=== PATIENT | female | born 1940 | race Caucasian/White ===

== ENCOUNTER → 2018-03-23 18:52 | Outpatient (CLI) | payer MEDICARE, OTHER, SELFPAY ==
--- NOTE | 2018-03-23 18:52 | DT_ITS ---
This patient was seen during an EMR downtime March 16, 2018 - March 23, 2018. This patient may have a combination of paper and electronic documentation or all paper documentation. All documentation is viewable within the e-chart portion of [facility] for each patient visit.
[2018-03-23 19:17] LABS: Hematocrit 38.8 % (37-47); Hemoglobin 11.4 g/dl (12.0-15.0); Mean Corp Hgb Conc 29.4 g/gl (32-36); Mean Corpuscular Hgb 27.5 pg (27.0-32.0); Mean Corpuscular Volume 93.7 fL (81-99); Mean Platelet Vol. 10.9 fl (6.2-12.0); Platelet Count 220 K/mm3 (150-450); RBC Distribution Width CV 15.7 % (11.6-14.6); RBC Distribution Width SD 53.6 fl (35.1-43.9); Red Blood Count 4.14 M/mm3 (4.2-5.4)
[2018-03-23 19:19] LABS: Scan Indicated on CBC? Y/N NO
[2018-03-23 19:32] LABS: AST(SGOT) 15 U/L (15-37); Alanine Aminotransfer ALT/SGPT 20 U/L (13-56); Albumin, Serum 3.4 g/dL (3.2-5.0); Alkaline Phosphatase 100 U/L (45-117); Anion Gap 8 (5-15); BUN 15 mg/dL (7-18); BUN/Creat Ratio 11.2 RATIO (10-20); Calcium,Total 9.4 mg/dL (8.5-10.1); Chloride 107 mmol/L (98-107); Creatinine, Serum 1.34 mg/dL (0.55-1.02); EST Glomerular Filtration Rate 41 mL/min (>60); Est Glom Filt Rate - Afr Amer 50 mL/min (>60); Globulin 3.5 g/dL (2.2-4.2); Glucose 96 mg/dL (74-106); Potassium 4.7 mmol/L (3.5-5.1); Prealbumin 14.9 mg/dL (20.0-40.0); Protein, Total 6.9 g/dL (6.4-8.2); Sodium Level 145 mmol/L (136-145)
[2018-03-23 19:39] LABS: Hemoglobin A1c 8.3 % (4.2-6.3)
== END ==
PROVIDERS: Surgery; Family Provider Internal Medicine; PCP Internal Medicine; Visit Provider Surgery
DX: L03.116 Cellulitis of left lower limb (principal); I73.9 Peripheral vascular disease, unspecified; E11.9 Type 2 diabetes mellitus without complications
CPT/HCPCS: 80053; 83036; 84134; 85027

== ENCOUNTER 2018-04-06 12:30 | Outpatient (RCR) | payer MEDICARE, OTHER, SELFPAY ==
--- NOTE | 2018-03-23 16:59 | HP.PCM_ITS ---
(1) Leg swelling Status: Chronic Current Visit: Yes Code(s): M79.89 - Other specified soft tissue disorders (2) Leg edema Status: Chronic Current Visit: Yes Code(s): R60.0 - Localized edema (3) Lymphedema Status: Chronic Current Visit: Yes Code(s): I89.0 - Lymphedema, not elsewhere classified (4) Ulcer of left lower leg Status: Acute Current Visit: Yes Qualifiers: Non-pressure ulcer stage: limited to breakdown of skin Qualified Code(s): L97.921 - Non-pressure chronic ulcer of unspecified part of left lower leg limited to breakdown of skin Code(s): L97.929 - Non-pressure chronic ulcer of unspecified part of left lower leg with unspecified severity (5) Morbid obesity with BMI of 50.0-59.9, adult Status: Chronic Current Visit: Yes Code(s): E66.01 - Morbid (severe) obesity due to excess calories; Z68.43 - Body mass index (BMI) 50-59.9 , adult (6) Diabetes mellitus Status: Chronic Current Visit: Yes Qualifiers: Diabetes mellitus type: type 2 Code(s): E11.9 - Type 2 diabetes mellitus without complications (7) Anemia Status: Chronic Current Visit: No Code(s): D64.9 - Anemia, unspecified (8) COPD (chronic obstructive pulmonary disease) Status: Chronic Current Visit: Yes Code(s): J44.9 - Chronic obstructive pulmonary disease, unspecified (9) A-fib Status: Chronic Current Visit: No Qualifiers: Atrial fibrillation type: chronic Qualified Code(s): I48.2 - Chronic atrial fibrillation Code(s): I48.91 - Unspecified atrial fibrillation (10) Hypertension Status: Chronic Current Visit: No Code(s): I10 - Essential (primary) hypertension (11) PAD (peripheral artery disease) Status: Chronic Current Visit: Yes Code(s): I73.9 - Peripheral vascular disease, unspecified (12) Osteoarthritis Status: Chronic Current Visit: No Code(s): M19.90 - Unspecified osteoarthritis, unspecified site (13) Hyperlipidemia Status: Chronic Current Visit: No Code(s): E78.5 - Hyperlipidemia, unspecified (14) Renal insufficiency Status: Chronic Current Visit: No Code(s): N28.9 - Disorder of kidney and ureter, unspecified (15) Dependent edema Status: Chronic Current Visit: Yes Code(s): R60.9 - Edema, unspecified History of Present Illness Date of Service: 03/23/18 Chief Complaint: Severe swelling, edema, and lymphedema of both lower extremities, associated with recent ulcerations of the left lower extremity. The patient states My skin is broke out. History of Wound: This is a 77-year-old morbidly obese, diabetic white female with a long-standing history of swelling, edema, and lymphedema in her lower extremities. She has developed chronic skin changes in both lower extremities. Within the last several weeks, she has developed blisters on the left anterior tibial surface and on the left posterior calf, which have burst, and developed into open superficial ulcerations. The patient sleeps primarily in a recliner with her legs in a dependent position. She suffers from chronic obstructive pulmonary disease, which limits her activity. As result, she does not ambulate very liberally. She leads a rather sedentary lifestyle, typically sitting in an ideal position for a good part of each day. The patient has had long-term swelling in both lower extremities, though denies a history of thrombophlebitis in the past. Upon initial development of the superficial ulcerations in the left lower extremity, the patient used [id number] antibiotic ointment. She was subsequently evaluated by a physician, and was prescribed oral antibiotic. She completed the initial prescription for antibiotic, and subsequently started a second prescription, which is nearly completed. The first antibiotic is unknown. The second antibiotic is suspected to be doxycycline. Past Medical History Past Medical History: Chronic Problems Leg swelling (Chronic) Leg edema (Chronic) Lymphedema (Chronic) Morbid obesity with BMI of 50.0-59.9, adult (Chronic) Diabetes mellitus (Chronic) Anemia (Chronic) COPD (chronic obstructive pulmonary disease) (Chronic) A-fib (Chronic) Hypertension (Chronic) PAD (peripheral artery disease) (Chronic) Osteoarthritis (Chronic) Hyperlipidemia (Chronic) Renal insufficiency (Chronic) Dependent edema (Chronic) Past Medical History: The patient has a history of diabetes mellitus, anemia, asthma, chronic obstructive pulmonary disease, atrial fibrillation, hypertension , peripheral arterial occlusive disease, osteoarthritis, renal insufficiency, and hyperlipidemia. She denies a history of myocardial infarction, congestive heart failure, cerebrovascular accident, and thyroid disease. Surgical History: - - The patient has undergone a complete hysterectomy in the past. She has also undergone ventral hernia repair. She is a Ab0. - Family History Paternal - - The patient's father at the age of 65 with a history of coronary artery disease. Patient's mother at the age of 87 with a history of chronic obstructive pulmonary disease. Social History: The patient is a . She is unemployed. She does not have a history of gainful employment. She denies use of alcohol and tobacco products. Lives: With Family Tobacco Use: Non-smoker Alcohol: None Drugs: None Review of Systems Constitutional: Denies: Chills, Fever, Weight Change Eyes: Denies: Pain, Vision Change HEENT: Denies: Difficulty Hearing, Difficulty Swallowing, Sinus Congestion Cardiovascular: Denies: Chest Pain, Palpitations Respiratory: Denies: Cough, Shortness of Breath Gastrointestinal: Denies: Diarrhea, Nausea, Vomiting Genitourinary: Denies: Dysuria, Hematuria Endocrine: Denies: Heat/ Cold Intolerance, Polydipsia, Polyuria Hematologic/ Lymphatic: Denies: Easy Bruising, Easy Bleeding - Physical Exam General: Alert, Oriented x3, Cooperative, No apparent distress, Well developed, Well nourished HEENT: Atraumatic, PERRLA, EOMI, Normocephalic Oral: Moist Mucosa Neck: Supple, No JVD, Negative Carotid Bruits, Negative Hepatojugular Reflux, No Nodes, No Nuchal Rigidity, Trachea Midline Lungs: Clear to auscultation, Normal air movement, No rhonchi, No wheeze, No rales Cardiovascular: Regular Rhythm, Normal S1, Normal S2, No murmurs Abdomen: Soft, Non Tender, Non-Distended, Obese Extremities: No clubbing, No cyanosis, No Calf Tenderness, - - Severe swelling, edema, and lymphedema are noted in the patient's lower extremities. Well- defined areas of erythema are noted on the anterior tibial surfaces in the gaiter areas bilaterally. This does not look cellulitic in nature. There are superficial ulcerations on the left anterior tibial surface and on the left posterior calf. The base of these ulcerations are generally pink, and generally healthy. There is no sign of infection or cellulitis. Musculoskeletal: No Muscle Wasting Neurological: Cranial nerves II-XII grossly intact, Neuro grossly intact Psych/Mental Status: Normal Affect, Appropriate, Alert and oriented to time, place, person, mood and affect Debridement Note No debridement was completed today Assessment/Plan Active Problems Leg swelling (Chronic) Leg edema (Chronic) Lymphedema (Chronic) Ulcer of left lower leg (Acute) Morbid obesity with BMI of 50.0-59.9, adult (Chronic) Diabetes mellitus (Chronic) COPD (chronic obstructive pulmonary disease) (Chronic) PAD (peripheral artery disease) (Chronic) Dependent edema (Chronic) Assessment: This is a 77-year-old female with multiple medical problems, including morbid obesity, diabetes mellitus, atrial fibrillation, chronic obstructive pulmonary disease, hypertension, renal insufficiency, etc. She presents with severe swelling and edema in her lower extremities. It appears to be related to chronic dependency, inactivity, morbid obesity, etc. In other words, the patient's daily habits appear to have contributed significantly to her lower extremity swelling. She has multiple pre-existing medical problems which have been documented elsewhere. Plan: The patient has been advised to elevate her lower extremities as much as possible. Elevation is to be to heart level, or higher. She is to refrain from prolonged idle sitting. Activity has been encouraged. Weight loss has been strongly encouraged. Compression is to be implemented initially by means of Tubigrip's. A higher degree of compression will be implemented, if noninvasive arterial assessment suggests an absence of significant arterial occlusive disease. Tubigrip's are to be donned and worn daily. We are to use collagen hydrogel topically to each of the superficial ulcerations. The patient has been encouraged to finish her current prescription for doxycycline. A battery of diagnostic studies will be obtained. Laboratory studies will be ordered, including a CBC, comprehensive metabolic profile, serum prealbumin, and hemoglobin A1c. A venous duplex examination will be obtained, as well as ankle-brachial indices. Patient has been advised to optimize her glycemic control. Patient will return in 1 week for reassessment. Influenza vaccine was not administered today. The patient is not a smoker. Patient weighs 307 pounds. Patient stands 5 feet 3 inches tall. Her BMI is 54.4, which places her in an obese class III category. Weight loss has been recommended, and collaboration with her primary care physician in terms of weight loss options has been recommended.
--- NOTE | 2018-03-30 08:11 | VDLE_ITS ---
Reason For Study: Non-healing wound RIGHT LEFT CFV is compressible, spontaneous, phasic, CFV is compressible, spontaneous, phasic, competent and demonstrates normal competent, and demonstrates normal augmentation. augmentation. FV is compressible, spontaneous, phasic, FV is compressible, spontaneous, phasic, competent and demonstrates normal competent and demonstrates normal augmentation. augmentation. POP V is compressible, spontaneous, phasic, POP V is compressible, spontaneous, phasic, competent and demonstrates normal competent and demonstrates normal augmentation. augmentation. T/P Trunk is compressible. T/P Trunk is compressible. PTV is compressible. PTV is compressible. SFJ is competent SFJ is competent GSV is competent int thigh GSV is competent GSV is INCOMPETENT in calf with reflux GSV branch S3 is INCOMPETENT with reflux greater than .5 sec and diameter of .48 greater than .5 sec and diameter of .31 x .48 cm x .29 cm SSV is competent. SSV is competent. Procedure Exam performed in department. Technically difficult due to body habitus. A preliminary report was called and/or faxed to [facility]. Interpretation Summary Deep veins of the lower extremities are bilaterally patent and compressible segmentally. There is no evidence of deep vein thrombosis on either side. Valvular competence appears intact within the proximal deep venous systems bilaterally. The greater saphenous veins appear bilaterally patent and compressible segmentally. Sapheno-femoral junctions are bilaterally competent . The right greater saphenous vein appears competent above the knee. The right greater saphenous vein appears incompetent below the knee. The left greater saphenous vein appears segmentally competent. Small saphenous veins are patent and competent bilaterally. The left accessory saphenous vein (S3) is incompetent. Ordering Physician: Mic Mendez MD Referring Physician: Stefanie Gold Performed By: Jennifer Thompson RVT
--- NOTE | 2018-03-30 18:32 | LEAS ---
Arterial Study - Arterial Study Arterial Study: This is a 77-year-old female with a history of lower extremity swelling, edema, diabetes mellitus, chronic obstructive pulmonary disease, atrial fibrillation, hyperlipidemia, renal insufficiency, hypertension, and peripheral arterial occlusive disease. With a history of, and suspecting, peripheral arterial occlusive disease, the patient was brought to the noninvasive vascular laboratory at this time for the purpose of bilateral noninvasive lower extremity arterial assessment. Doppler signal assessment was used to evaluate the pulses at ankle level bilaterally. The posterior tibial and dorsalis pedis pulses were triphasic bilaterally. Segmental limb pressures were obtained bilaterally. The right ankle pressure, as determined by posterior tibial pulse, was measured at 162 mmHg. The right ankle pressure, as determined by dorsalis pedis pulse, was measured at 155 mmHg. The right digital pressure was measured at 143 mmHg. The left ankle pressure, as determined by posterior tibial pulse, was measured at 168 mmHg. The left ankle pressure, as determined by dorsalis pedis pulse, was measured at 159 mmHg. The left digital pressure was measured at 138 mmHg. Resting ankle-brachial indices were calculated bilaterally. The resting right ankle-brachial index was calculated to be 1.17. The resting left ankle-brachial index was calculated to be 1.21. Digital-brachial indices were calculated bilaterally. The right digital-brachial index was calculated to be 1.03. The left digital-brachial index was calculated to be 0.99. Impression: Based upon the findings of this resting noninvasive lower extremity arterial study, there is no evidence of significant atherosclerotic peripheral arterial occlusive disease in the lower extremities bilaterally. Triphasic waveforms are noted at ankle level bilaterally. Resting ankle-brachial indices are bilaterally normal. Digital-brachial indices are also normal bilaterally. In summary, this represents a normal resting noninvasive lower extremity arterial study bilaterally.
--- NOTE | 2018-03-30 18:38 | LEAS_ITS ---
Arterial Study - Arterial Study Arterial Study: This is a 77-year-old female with a history of lower extremity swelling, edema, diabetes mellitus, chronic obstructive pulmonary disease, atrial fibrillation, hyperlipidemia, renal insufficiency, hypertension, and peripheral arterial occlusive disease. With a history of, and suspecting, peripheral arterial occlusive disease, the patient was brought to the noninvasive vascular laboratory at this time for the purpose of bilateral noninvasive lower extremity arterial assessment. Doppler signal assessment was used to evaluate the pulses at ankle level bilaterally. The posterior tibial and dorsalis pedis pulses were triphasic bilaterally. Segmental limb pressures were obtained bilaterally. The right ankle pressure, as determined by posterior tibial pulse, was measured at 162 mmHg. The right ankle pressure, as determined by dorsalis pedis pulse, was measured at 155 mmHg. The right digital pressure was measured at 143 mmHg. The left ankle pressure, as determined by posterior tibial pulse, was measured at 168 mmHg. The left ankle pressure, as determined by dorsalis pedis pulse, was measured at 159 mmHg. The left digital pressure was measured at 138 mmHg. Resting ankle-brachial indices were calculated bilaterally. The resting right ankle-brachial index was calculated to be 1.17. The resting left ankle- brachial index was calculated to be 1.21. Digital-brachial indices were calculated bilaterally. The right digital- brachial index was calculated to be 1.03. The left digital-brachial index was calculated to be 0.99. Impression: Based upon the findings of this resting noninvasive lower extremity arterial study, there is no evidence of significant atherosclerotic peripheral arterial occlusive disease in the lower extremities bilaterally. Triphasic waveforms are noted at ankle level bilaterally. Resting ankle-brachial indices are bilaterally normal. Digital-brachial indices are also normal bilaterally. In summary, this represents a normal resting noninvasive lower extremity arterial study bilaterally.
[2018-04-06 12:25] VITALS: BP 163/73; PULSE 98; RESP 22; TEMP 36.6
--- NOTE | 2018-04-06 13:13 | HP.PCM_ITS ---
(1) Leg swelling Status: Chronic Current Visit: Yes Code(s): M79.89 - Other specified soft tissue disorders (2) Leg edema Status: Chronic Current Visit: Yes Code(s): R60.0 - Localized edema (3) Lymphedema Status: Chronic Current Visit: Yes Code(s): I89.0 - Lymphedema, not elsewhere classified (4) Ulcer of left lower leg Status: Acute Current Visit: Yes Qualifiers: Non-pressure ulcer stage: with fat layer exposed Qualified Code(s): L97.922 - Non-pressure chronic ulcer of unspecified part of left lower leg with fat layer exposed Code(s): L97.929 - Non-pressure chronic ulcer of unspecified part of left lower leg with unspecified severity (5) Morbid obesity with BMI of 50.0-59.9, adult Status: Chronic Current Visit: Yes Code(s): E66.01 - Morbid (severe) obesity due to excess calories; Z68.43 - Body mass index (BMI) 50-59.9 , adult (6) Diabetes mellitus Status: Chronic Current Visit: Yes Qualifiers: Diabetes mellitus type: type 2 Code(s): E11.9 - Type 2 diabetes mellitus without complications (7) Anemia Status: Chronic Current Visit: No Code(s): D64.9 - Anemia, unspecified (8) COPD (chronic obstructive pulmonary disease) Status: Chronic Current Visit: Yes Code(s): J44.9 - Chronic obstructive pulmonary disease, unspecified (9) A-fib Status: Chronic Current Visit: No Qualifiers: Atrial fibrillation type: chronic Qualified Code(s): I48.2 - Chronic atrial fibrillation Code(s): I48.91 - Unspecified atrial fibrillation (10) Hypertension Status: Chronic Current Visit: No Code(s): I10 - Essential (primary) hypertension (11) PAD (peripheral artery disease) Status: Chronic Current Visit: Yes Code(s): I73.9 - Peripheral vascular disease, unspecified (12) Osteoarthritis Status: Chronic Current Visit: No Code(s): M19.90 - Unspecified osteoarthritis, unspecified site (13) Hyperlipidemia Status: Chronic Current Visit: No Code(s): E78.5 - Hyperlipidemia, unspecified (14) Renal insufficiency Status: Chronic Current Visit: No Code(s): N28.9 - Disorder of kidney and ureter, unspecified (15) Dependent edema Status: Chronic Current Visit: Yes Code(s): R60.9 - Edema, unspecified History of Present Illness Date of Service: 04/06/18 Chief Complaint: Severe swelling, edema, and lymphedema of both lower extremities, associated with recent ulcerations of the left lower extremity. The patient states My skin is broke out. History of Wound: This is a 77-year-old morbidly obese, diabetic white female with a long-standing history of swelling, edema, and lymphedema in her lower extremities. She has developed chronic skin changes in both lower extremities. Within the last several weeks, she has developed blisters on the left anterior tibial surface and on the left posterior calf, which have burst, and developed into open superficial ulcerations. The patient sleeps primarily in a recliner with her legs in a dependent position. She suffers from chronic obstructive pulmonary disease, which limits her activity. As result, she does not ambulate very liberally. She leads a rather sedentary lifestyle, typically sitting in an ideal position for a good part of each day. The patient has had long-term swelling in both lower extremities, though denies a history of thrombophlebitis in the past. Upon initial development of the superficial ulcerations in the left lower extremity, the patient used [id number] antibiotic ointment. She was subsequently evaluated by a physician, and was prescribed oral antibiotic. She completed the initial prescription for antibiotic, and subsequently started a second prescription, which is now completed. The first antibiotic is unknown. The second antibiotic is suspected to have been doxycycline. Past Medical History Past Medical History: Chronic Problems Leg swelling (Chronic) Leg edema (Chronic) Lymphedema (Chronic) Morbid obesity with BMI of 50.0-59.9, adult (Chronic) Diabetes mellitus (Chronic) Anemia (Chronic) COPD (chronic obstructive pulmonary disease) (Chronic) A-fib (Chronic) Hypertension (Chronic) PAD (peripheral artery disease) (Chronic) Osteoarthritis (Chronic) Hyperlipidemia (Chronic) Renal insufficiency (Chronic) Dependent edema (Chronic) Surgical History: - - The patient has undergone a complete hysterectomy in the past. She has also undergone ventral hernia repair. She is a Ab0. - Family History Paternal - - The patient's father at the age of 65 with a history of coronary artery disease. Patient's mother at the age of 87 with a history of chronic obstructive pulmonary disease. Lives: With Family Tobacco Use: Non-smoker Alcohol: None Drugs: None Review of Systems Constitutional: Denies: Chills, Fever, Weight Change Eyes: Denies: Pain, Vision Change HEENT: Denies: Difficulty Hearing, Difficulty Swallowing, Sinus Congestion Cardiovascular: Denies: Chest Pain, Palpitations Respiratory: Denies: Cough, Shortness of Breath Gastrointestinal: Denies: Diarrhea, Nausea, Vomiting Genitourinary: Denies: Dysuria, Hematuria Endocrine: Denies: Heat/ Cold Intolerance, Polydipsia, Polyuria Hematologic/ Lymphatic: Denies: Easy Bruising, Easy Bleeding - Physical Exam Vital Signs Temp Pulse Resp BP 97.8 F 98 22 H 163/73 H 04/06/18 12:25 04/06/18 12:25 04/06/18 12:25 04/06/18 12:25 General: Alert, Oriented x3, Cooperative, No apparent distress, Well developed, Well nourished HEENT: Atraumatic, PERRLA, EOMI, Normocephalic Oral: Moist Mucosa Neck: No JVD Lungs: Normal air movement Abdomen: Non-Distended, Obese Extremities: No clubbing, No cyanosis, No Calf Tenderness, - - Mild swelling and edema persists in the lower extremities bilaterally. One superficial ulceration is noted on the right anterior tibial surface. Several superficial ulcerations are noted on the left anterior tibial surface. Those in the left lower extremity demonstrate a moderate amount of bioburden and nonviable tissue. There is no sign of infection or cellulitis. Skin: No rashes Wound Measurements and Assessment WC - Nurse 1 - General Ulcer Measurement Start: 03/26/18 14:23 Freq: Status: Active Protocol: Activity Type Activity Date Activity User E-Sign Co-Sign Detail Recorded Client Recorded Date Recorded By Document 04/06/18 12:25 DL [id number] 04/06/18 12:39 DL 04/06/18 12:25 Wound Center Nurse 1 [Ulcer Assessment] #2 L Lower Calf -Current Size (cm) - Length 5 -Current Size (cm) - Width 2.3 -Current Size (cm) - Depth 0.1 -Total Square Cm 11.5 -Photo Taken No -Exudate Amt Small (1-33%) -Exudate Type Serosanguineous -Wound Margin Indistinct, Non -Visible -Granulation Amt Small (1-33%) -Granulation Quality [place] -Necrosis Amt Large (67-100%) -Necrotic Tissue Type Adherent Slough -Structure Exposed N/A -Texture (Mitzi-wound Skin Appearance) Scarring -Moisture (Mitzi-wound Skin Appearance No Abnormality ) -Color (Mitzi-wound Skin Appearance) Hemosiderin Staining -Temperature (Mitzi-wound Skin No Abnormality Appearance) (Pt Warm) -Ulcer Cleansing Wound Cleanser -Foul Odor after Cleansing No -Anesthetic Used 4% Lidocaine Solution #1 L [place] -Current Size (cm) - Length 6 -Current Size (cm) - Width 2.6 -Current Size (cm) - Depth 0.1 -Total Square Cm 15.6 -Photo Taken No -Exudate Amt Small (1-33%) -Exudate Type Serosanguineous -Wound Margin Indistinct, Non -Visible -Granulation Amt Small (1-33%) -Granulation Quality [place] -Necrosis Amt Large (67-100%) -Necrotic Tissue Type Adherent Slough -Structure Exposed N/A -Texture (Mitzi-wound Skin Appearance) No Abnormality -Moisture (Mitzi-wound Skin Appearance Weeping ) -Color (Mitzi-wound Skin Appearance) Hemosiderin Staining Rubor -Temperature (Mitzi-wound Skin No Abnormality Appearance) (Pt Warm) -Ulcer Cleansing Wound Cleanser -Foul Odor after Cleansing No -Anesthetic Used 4% Lidocaine Solution [Edema Assessment] -Right Calf (cm) 48.5 -Right Ankle (cm) 27 -Left Calf (cm) 48.9 -Left Ankle (cm) 26.6 WC - Nurse 2 - General Ulcer CM Notes Start: 03/26/18 14:23 Freq: Status: Active Protocol: Activity Type Activity Date Activity User E-Sign Co-Sign Detail Recorded Client Recorded Date Recorded By Document 04/06/18 12:53 [email or web address] [id number] 04/06/18 12:56 SAUD 04/06/18 12:53 Wound Center Nurse 2 [Procedure/Treatment] #2 L Lower Calf -Time 12:53 -Correct Patient Yes -Correct Side, Site, Position Yes -Correct Procedure Yes -Procedure Performed No -Wound/Ulcer Outcome Not Healed -Ulcer Cleansing Rinsed/ Irrigated with Saline -Foul Odor after Cleansing No -Bioengineered Tissue No -Topical Lidocaine (%) 4 -Lidocaine (ml) 5 -Bleeding Controlled with NA -Treatment Response Procedure Tolerated Well #1 L [place] -Time 12:54 -Correct Patient Yes -Correct Side, Site, Position Yes -Correct Procedure Yes -Procedure Performed Yes -Type of Procedure Debridement -Clinical Debridement Subcutaneous -Post Debridement Size (cm) - Length 6.4 -Post Debridement Size (cm) - Width 2.5 -Post Debridement Size (cm) - Depth 0.2 -Total Square Cm 16.00 -Wound/Ulcer Outcome Not Healed -Ulcer Cleansing Rinsed/ Irrigated with Saline -Foul Odor after Cleansing No -Bioengineered Tissue No -Topical Lidocaine (%) 4 -Lidocaine (ml) 5 -Bleeding Controlled with NA -Treatment Response Procedure Tolerated Well [See Physician Procedure note for Specifics] Pain Scale: 0-10 Numeric [Pain] -Is Patient Pain Free? Yes Musculoskeletal: No Muscle Wasting Neurological: Cranial nerves II-XII grossly intact, Neuro grossly intact Psych/Mental Status: Normal Affect, Appropriate, Alert and oriented to time, place, person, mood and affect Debridement Note Post-Debridement Measurements/Treatment WC - Nurse 2 - General Ulcer CM Notes Start: 03/26/18 14:23 Freq: Status: Active Protocol: Activity Type Activity Date Activity User E-Sign Co-Sign Detail Recorded Client Recorded Date Recorded By Document 04/06/18 12:53 [email or web address] [id number] 04/06/18 12:56 SAUD 04/06/18 12:53 Wound Center Nurse 2 #2 L Lower Calf -Time 12:53 -Correct Patient Yes -Correct Side, Site, Position Yes -Correct Procedure Yes -Procedure Performed No -Wound/Ulcer Outcome Not Healed -Ulcer Cleansing Rinsed/ Irrigated with Saline -Foul Odor after Cleansing No -Bioengineered Tissue No -Topical Lidocaine (%) 4 -Lidocaine (ml) 5 -Bleeding Controlled with NA -Treatment Response Procedure Tolerated Well #1 L [place] -Time 12:54 -Correct Patient Yes -Correct Side, Site, Position Yes -Correct Procedure Yes -Procedure Performed Yes -Type of Procedure Debridement -Clinical Debridement Subcutaneous -Post Debridement Size (cm) - Length 6.4 -Post Debridement Size (cm) - Width 2.5 -Post Debridement Size (cm) - Depth 0.2 -Total Square Cm 16.00 -Wound/Ulcer Outcome Not Healed -Ulcer Cleansing Rinsed/ Irrigated with Saline -Foul Odor after Cleansing No -Bioengineered Tissue No -Topical Lidocaine (%) 4 -Lidocaine (ml) 5 -Bleeding Controlled with NA -Treatment Response Procedure Tolerated Well Pain Scale: 0-10 Numeric Is Patient Pain Free? Yes Laterality: Left - Anterior tibial surface Type of Debridement: Excisional debridement Anesthesia Used: 4% Lidocaine Solution Depth: Down to and including healthy tissue, in the subcutaneous layer Percentage of wound debrided: 100 Instrument Used: 5mm curette Severity: Fat Layer Exposed Amount of bleeding with debridement: Mild Bleeding Controlled with: Compression and gauze Patient tolerated procedure well Assessment/Plan Active Problems Leg swelling (Chronic) Leg edema (Chronic) Lymphedema (Chronic) Ulcer of left lower leg (Acute) Morbid obesity with BMI of 50.0-59.9, adult (Chronic) Diabetes mellitus (Chronic) COPD (chronic obstructive pulmonary disease) (Chronic) PAD (peripheral artery disease) (Chronic) Dependent edema (Chronic) Assessment: This is a 77-year-old female with multiple medical problems, including morbid obesity, diabetes mellitus, atrial fibrillation, chronic obstructive pulmonary disease, hypertension, renal insufficiency, etc. She presented with severe swelling and edema in her lower extremities. It appears to be related to chronic dependency, inactivity, morbid obesity, etc. In other words, the patient's daily habits appear to have contributed significantly to her lower extremity swelling. She has multiple pre-existing medical problems which have been documented elsewhere. A battery of diagnostic tests have been completed. The patient's noninvasive lower extremity arterial study appears normal, with triphasic waveforms at ankle level bilaterally, and normal ankle- brachial indices and digital-brachial indices. 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 Patient's laboratory studies have been reviewed, with results as follows: Sodium 145, potassium 4.7, chloride 107, BUN 15, creatinine 1.34, glucose 96, hemoglobin A1c 8.3, calcium 9.4, total bilirubin 0.60, AST 15, ALT 20, alkaline phosphatase 100, total protein 6.9, albumin 3.4, serum prealbumin 14.9, white blood count 7.0, hemoglobin 11.4, hematocrit 38.8, platelets 220,000. Plan: The patient has been advised to elevate her lower extremities as much as possible. Elevation is to be to heart level, or higher. She is to refrain from prolonged idle sitting. Activity has been encouraged. Weight loss has been strongly encouraged. Compression is to be implemented by means of [place] boots, which will be applied bilaterally and twice weekly. Patient has been advised to optimize her glycemic control and to assure adequate nutrition. Patient will return in 1 week for reassessment. Influenza vaccine was not administered today. The patient is not a smoker. Patient weighs 307 pounds. Patient stands 5 feet 3 inches tall. Her BMI is 54.4, which places her in an obese class III category. Weight loss has been recommended, and collaboration with her primary care physician in terms of weight loss options has been recommended.
[2018-04-09 14:37] VITALS: BP 149/84; PULSE 99; RESP 16; TEMP 36.9
== END 2018-04-11 23:59 ==
LOC: WC 12:30
PROVIDERS: Family Provider Internal Medicine; PCP Internal Medicine; Visit Provider Surgery
DX: E11.622 Type 2 diabetes mellitus with other skin ulcer (principal); R60.0 Localized edema; I89.0 Lymphedema, not elsewhere classified; M79.89 Other specified soft tissue disorders; E66.01 Morbid (severe) obesity due to excess calories; Z68.43 Body mass index [BMI] 50.0-59.9, adult; Z71.3 Dietary counseling and surveillance; I48.2 Chronic atrial fibrillation; I10 Essential (primary) hypertension; M19.90 Unspecified osteoarthritis, unspecified site; E78.5 Hyperlipidemia, unspecified; J44.9 Chronic obstructive pulmonary disease, unspecified; N28.9 Disorder of kidney and ureter, unspecified; I83.028 Varicose veins of left lower extremity with ulcer other part of lower leg; L97.922 Non-pressure chronic ulcer of unspecified part of left lower leg with fat layer exposed
CPT/HCPCS: 11042; 29580; 93922; 93970; 99213; G0463

== ENCOUNTER 2018-05-12 11:30 | Outpatient (RCR) | payer MEDICARE, OTHER, SELFPAY ==
[2018-04-12 01:07] VITALS: BP 149/84; PULSE 99; RESP 16; TEMP 36.9
[2018-04-14 10:18] VITALS: BP 141/65; PULSE 106; RESP 18; TEMP 36.6
--- NOTE | 2018-04-14 12:24 | HP.PCM_ITS ---
(1) Leg swelling Status: Chronic Current Visit: Yes Code(s): M79.89 - Other specified soft tissue disorders (2) Leg edema Status: Chronic Current Visit: Yes Code(s): R60.0 - Localized edema (3) Lymphedema Status: Chronic Current Visit: Yes Code(s): I89.0 - Lymphedema, not elsewhere classified (4) Ulcer of left lower leg Status: Chronic Current Visit: Yes Qualifiers: Non-pressure ulcer stage: with fat layer exposed Code(s): L97.929 - Non-pressure chronic ulcer of unspecified part of left lower leg with unspecified severity (5) Morbid obesity with BMI of 50.0-59.9, adult Status: Chronic Current Visit: Yes Code(s): E66.01 - Morbid (severe) obesity due to excess calories; Z68.43 - Body mass index (BMI) 50-59.9 , adult (6) Diabetes mellitus Status: Chronic Current Visit: Yes Qualifiers: Diabetes mellitus type: type 2 Code(s): E11.9 - Type 2 diabetes mellitus without complications (7) Anemia Status: Chronic Current Visit: No Code(s): D64.9 - Anemia, unspecified (8) COPD (chronic obstructive pulmonary disease) Status: Chronic Current Visit: No Code(s): J44.9 - Chronic obstructive pulmonary disease, unspecified (9) A-fib Status: Chronic Current Visit: No Qualifiers: Code(s): I48.91 - Unspecified atrial fibrillation (10) Hypertension Status: Chronic Current Visit: No Code(s): I10 - Essential (primary) hypertension (11) PAD (peripheral artery disease) Status: Chronic Current Visit: No Code(s): I73.9 - Peripheral vascular disease, unspecified (12) Osteoarthritis Status: Chronic Current Visit: No Code(s): M19.90 - Unspecified osteoarthritis, unspecified site (13) Hyperlipidemia Status: Chronic Current Visit: No Code(s): E78.5 - Hyperlipidemia, unspecified (14) Renal insufficiency Status: Chronic Current Visit: No Code(s): N28.9 - Disorder of kidney and ureter, unspecified (15) Dependent edema Status: Chronic Current Visit: Yes Code(s): R60.9 - Edema, unspecified History of Present Illness Date of Service: 04/14/18 Chief Complaint: Severe swelling, edema, and lymphedema of both lower extremities, associated with recent ulcerations of the left lower extremity. The patient states My skin is broke out. History of Wound: This is a 77-year-old morbidly obese, diabetic white female with a long-standing history of swelling, edema, and lymphedema in her lower extremities. She has developed chronic skin changes in both lower extremities. Within the last several weeks prior to presentation, she developed blisters on the left anterior tibial surface and on the left posterior calf, which have burst, and developed into open superficial ulcerations. The patient sleeps primarily in a recliner with her legs in a dependent position. She suffers from chronic obstructive pulmonary disease, which limits her activity. As a result, she does not ambulate very liberally. She leads a rather sedentary lifestyle, typically sitting in an ideal position for a good part of each day. The patient has had long-term swelling in both lower extremities, though denies a history of thrombophlebitis in the past. Upon initial development of the superficial ulcerations in the left lower extremity, the patient used over-the- counter antibiotic ointment. She was subsequently evaluated by a physician, and was prescribed oral antibiotic. She completed the initial prescription for antibiotic, and subsequently started a second prescription, which is now completed. The first antibiotic is unknown. The second antibiotic is suspected to have been doxycycline. Past Medical History Past Medical History: Chronic Problems Leg swelling (Chronic) Leg edema (Chronic) Lymphedema (Chronic) Ulcer of left lower leg (Chronic) Morbid obesity with BMI of 50.0-59.9, adult (Chronic) Diabetes mellitus (Chronic) Anemia (Chronic) COPD (chronic obstructive pulmonary disease) (Chronic) A-fib (Chronic) Hypertension (Chronic) PAD (peripheral artery disease) (Chronic) Osteoarthritis (Chronic) Hyperlipidemia (Chronic) Renal insufficiency (Chronic) Dependent edema (Chronic) Surgical History: - - The patient has undergone a complete hysterectomy in the past. She has also undergone ventral hernia repair. She is a Ab0. - Family History Paternal - - The patient's father at the age of 65 with a history of coronary artery disease. Patient's mother at the age of 87 with a history of chronic obstructive pulmonary disease. Tobacco Use: Non-smoker Review of Systems Constitutional: Denies: Chills, Fever, Weight Change Eyes: Denies: Pain, Vision Change HEENT: Denies: Difficulty Hearing, Difficulty Swallowing, Sinus Congestion Cardiovascular: Denies: Chest Pain, Palpitations Respiratory: Denies: Cough, Shortness of Breath Gastrointestinal: Denies: Diarrhea, Nausea, Vomiting Genitourinary: Denies: Dysuria, Hematuria Endocrine: Denies: Heat/ Cold Intolerance, Polydipsia, Polyuria Hematologic/ Lymphatic: Denies: Easy Bruising, Easy Bleeding - Physical Exam Vital Signs Temp Pulse Resp BP 98 F 106 H 18 141/65 H 04/14/18 10:18 04/14/18 10:18 04/14/18 10:18 04/14/18 10:18 General: Alert, Oriented x3, Cooperative, No apparent distress, Well developed, Well nourished, - - The patient is obese HEENT: Atraumatic, PERRLA, EOMI, Normocephalic Oral: Moist Mucosa Neck: No JVD Lungs: Normal air movement Abdomen: Non-Distended Extremities: No clubbing, No cyanosis, No Calf Tenderness, Edema, - - The swelling and edema in the lower extremities is markedly improved. Circumference measurements are documented elsewhere. Mild erythema persists bilaterally, though not appearing to be cellulitic in nature. The 2 ulcerations on the left lower extremity, on the anterior tibial surface and on the left distal posterior calf, are much smaller in size and more superficial. There has been marked improvement. The base of each ulceration is generally pink, with a mild amount of bioburden. Ulcer dimensions are documented elsewhere. Wound Measurements and Assessment WC - Nurse 1 - General Ulcer Measurement Start: 04/14/18 10:18 Freq: Status: Active Protocol: Activity Type Activity Date Activity User E-Sign Co-Sign Detail Recorded Client Recorded Date Recorded By Document 04/14/18 10:18 [id number] 04/14/18 10:26 04/14/18 10:18 Wound Center Nurse 1 [Ulcer Assessment] #2 L Lower Calf -Combined with other wound No -Current Size (cm) - Length 1.0 -Current Size (cm) - Width 0.6 -Current Size (cm) - Depth 0.1 -Total Square Cm 0.60 -Photo Taken No -Tunneling No -Undermining/Tunneling No -Circular Undermining No -Exudate Amt Small (1-33%) -Exudate Type Serosanguineous -Wound Margin Distinct, Outline Attached -Granulation Amt Large (67-100%) -Granulation Quality [place] -Slough/Fibrin No -Necrosis Amt None Present (0 %) -Structure Exposed None/Limited to Skin Breakdown -Texture (Mitzi-wound Skin Appearance) Scarring -Moisture (Mitzi-wound Skin Appearance Dry/Scaly ) -Color (Mitzi-wound Skin Appearance) Hemosiderin Staining -Temperature (Mitzi-wound Skin No Abnormality Appearance) (Pt Warm) -Tenderness on Palpation (Mitzi-wound Yes Skin Appearance) -Ulcer Cleansing Wound Cleanser -Anesthetic Used 4% Lidocaine Solution #1 L [place] -Combined with other wound No -Current Size (cm) - Length 1.0 -Current Size (cm) - Width 0.9 -Current Size (cm) - Depth 0.1 -Total Square Cm 0.90 -Photo Taken No -Epithelialization Small 1-33% -Tunneling No -Undermining/Tunneling No -Circular Undermining No -Exudate Amt Small (1-33%) -Exudate Type Serosanguineous -Wound Margin Distinct, Outline Attached -Granulation Amt Medium (34-66%) -Granulation Quality [place] -Slough/Fibrin Yes -Necrosis Amt Medium (34-66%) -Necrotic Tissue Type Adherent Slough -Structure Exposed None/Limited to Skin Breakdown -Texture (Mitzi-wound Skin Appearance) Scarring -Moisture (Mitzi-wound Skin Appearance Dry/Scaly ) -Color (Mitzi-wound Skin Appearance) Hemosiderin Staining -Temperature (Mitzi-wound Skin No Abnormality Appearance) (Pt Warm) -Tenderness on Palpation (Mitzi-wound Yes Skin Appearance) -Ulcer Cleansing Wound Cleanser -Foul Odor after Cleansing No -Anesthetic Used 4% Lidocaine Solution [Edema Assessment] -Lower Limb Edema Present Yes -Right Calf (cm) 46 -Right Ankle (cm) 27 -Left Calf (cm) 45.5 -Left Ankle (cm) 26.5 Neurological: Cranial nerves II-XII grossly intact, Neuro grossly intact Psych/Mental Status: Normal Affect, Appropriate, Alert and oriented to time, place, person, mood and affect Debridement Note Laterality: Left - Anterior tibial surface Type of Debridement: Excisional debridement Anesthesia Used: 4% Lidocaine Solution Depth: Down to and including healthy tissue, in the subcutaneous layer Percentage of wound debrided: 100 Instrument Used: 5mm curette Severity: Fat Layer Exposed Amount of bleeding with debridement: Mild Bleeding Controlled with: Compression and gauze Patient tolerated procedure well - Additional Wound Laterality: Left - Posterior calf Type of Debridement: Excisional debridement Anesthesia Used: 4% Lidocaine Solution Depth: Down to and including healthy tissue, in the subcutaneous layer Percentage of wound debrided: 100 Instrument Used: 5mm curette Severity: Fat Layer Exposed Amount of bleeding with debridement: Mild Bleeding Controlled with: Compression and gauze Patient tolerated procedure: Patient tolerated procedure well Assessment/Plan Active Problems Leg swelling (Chronic) Leg edema (Chronic) Lymphedema (Chronic) Ulcer of left lower leg (Chronic) Morbid obesity with BMI of 50.0-59.9, adult (Chronic) Diabetes mellitus (Chronic) Dependent edema (Chronic) Assessment: This is a 77-year-old female with multiple medical problems, including morbid obesity, diabetes mellitus, atrial fibrillation, chronic obstructive pulmonary disease, hypertension, renal insufficiency, etc. She presented with severe swelling and edema in her lower extremities. It appears to be related to chronic dependency, inactivity, morbid obesity, etc. In other words, the patient's daily habits appear to have contributed significantly to her lower extremity swelling. She has multiple pre-existing medical problems which have been documented elsewhere. A battery of diagnostic tests have been completed. The patient's noninvasive lower extremity arterial study appears normal, with triphasic waveforms at ankle level bilaterally, and normal ankle- brachial indices and digital-brachial indices. 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 Patient's laboratory studies have been reviewed, with results as follows: Sodium 145, potassium 4.7, chloride 107, BUN 15, creatinine 1.34, glucose 96, hemoglobin A1c 8.3, calcium 9.4, total bilirubin 0.60, AST 15, ALT 20, alkaline phosphatase 100, total protein 6.9, albumin 3.4, serum prealbumin 14.9, white blood count 7.0, hemoglobin 11.4, hematocrit 38.8, platelets 220,000. Plan: The patient has been advised to elevate her lower extremities as much as possible. Elevation is to be to heart level, or higher. She is to refrain from prolonged idle sitting. Activity has been encouraged. Weight loss has been strongly encouraged. Compression is to be continued by means of [place] boots , which will be applied bilaterally and twice weekly. Patient has been advised to optimize her glycemic control and to assure adequate nutrition. Patient will return in 1 week for reassessment. Influenza vaccine was not administered today. The patient is not a smoker. Patient weighs 307 pounds. Patient stands 5 feet 3 inches tall. Her BMI is 54.4, which places her in an obese class III category. Weight loss has been recommended, and collaboration with her primary care physician in terms of weight loss options has been recommended.
[2018-04-17 12:33] VITALS: BP 153/67; PULSE 105; RESP 20; TEMP 36.4
[2018-04-21 11:24] VITALS: BP 169/92; PULSE 101; RESP 22; TEMP 36.6
--- NOTE | 2018-04-21 12:00 | HP.PCM_ITS ---
(1) Leg swelling Status: Chronic Current Visit: Yes Code(s): M79.89 - Other specified soft tissue disorders (2) Leg edema Status: Chronic Current Visit: Yes Code(s): R60.0 - Localized edema (3) Lymphedema Status: Chronic Current Visit: Yes Code(s): I89.0 - Lymphedema, not elsewhere classified (4) Ulcer of left lower leg Status: Chronic Current Visit: Yes Qualifiers: Non-pressure ulcer stage: with fat layer exposed Code(s): L97.929 - Non-pressure chronic ulcer of unspecified part of left lower leg with unspecified severity (5) Morbid obesity with BMI of 50.0-59.9, adult Status: Chronic Current Visit: Yes Code(s): E66.01 - Morbid (severe) obesity due to excess calories; Z68.43 - Body mass index (BMI) 50-59.9 , adult (6) Diabetes mellitus Status: Chronic Current Visit: Yes Qualifiers: Diabetes mellitus type: type 2 Code(s): E11.9 - Type 2 diabetes mellitus without complications (7) Anemia Status: Chronic Current Visit: No Code(s): D64.9 - Anemia, unspecified (8) COPD (chronic obstructive pulmonary disease) Status: Chronic Current Visit: No Code(s): J44.9 - Chronic obstructive pulmonary disease, unspecified (9) A-fib Status: Chronic Current Visit: No Qualifiers: Code(s): I48.91 - Unspecified atrial fibrillation (10) Hypertension Status: Chronic Current Visit: No Code(s): I10 - Essential (primary) hypertension (11) PAD (peripheral artery disease) Status: Chronic Current Visit: No Code(s): I73.9 - Peripheral vascular disease, unspecified (12) Osteoarthritis Status: Chronic Current Visit: No Code(s): M19.90 - Unspecified osteoarthritis, unspecified site (13) Hyperlipidemia Status: Chronic Current Visit: No Code(s): E78.5 - Hyperlipidemia, unspecified (14) Renal insufficiency Status: Chronic Current Visit: No Code(s): N28.9 - Disorder of kidney and ureter, unspecified (15) Dependent edema Status: Chronic Current Visit: Yes Code(s): R60.9 - Edema, unspecified History of Present Illness Date of Service: 04/21/18 Chief Complaint: Severe swelling, edema, and lymphedema of both lower extremities, associated with recent ulcerations of the left lower extremity. The patient states My skin is broke out. History of Wound: This is a 77-year-old morbidly obese, diabetic white female with a long-standing history of swelling, edema, and lymphedema in her lower extremities. She has developed chronic skin changes in both lower extremities. Within the last several weeks prior to presentation, she developed blisters on the left anterior tibial surface and on the left posterior calf, which have burst, and developed into open superficial ulcerations. The patient sleeps primarily in a recliner with her legs in a dependent position. She is morbidly obese . She suffers from chronic obstructive pulmonary disease, which limits her activity. As a result, she does not ambulate very liberally. She leads a rather sedentary lifestyle, typically sitting in an idle position for a good part of each day. The patient has had long-term swelling in both lower extremities, though denies a history of thrombophlebitis in the past. Upon initial development of the superficial ulcerations in the left lower extremity, the patient used [id number] antibiotic ointment. She was subsequently evaluated by a physician, and was prescribed oral antibiotic. She completed the initial prescription for antibiotic, and subsequently completed a second prescription. The initial antibiotic was unknown. The second antibiotic is suspected to have been doxycycline. Past Medical History Past Medical History: Chronic Problems Leg swelling (Chronic) Leg edema (Chronic) Lymphedema (Chronic) Ulcer of left lower leg (Chronic) Morbid obesity with BMI of 50.0-59.9, adult (Chronic) Diabetes mellitus (Chronic) Anemia (Chronic) COPD (chronic obstructive pulmonary disease) (Chronic) A-fib (Chronic) Hypertension (Chronic) PAD (peripheral artery disease) (Chronic) Osteoarthritis (Chronic) Hyperlipidemia (Chronic) Renal insufficiency (Chronic) Dependent edema (Chronic) Surgical History: - - The patient has undergone a complete hysterectomy in the past. She has also undergone ventral hernia repair. She is a Ab0. - Family History Paternal - - The patient's father at the age of 65 with a history of coronary artery disease. Patient's mother at the age of 87 with a history of chronic obstructive pulmonary disease. Tobacco Use: Non-smoker Review of Systems Constitutional: Denies: Chills, Fever, Weight Change Eyes: Denies: Pain, Vision Change HEENT: Denies: Difficulty Hearing, Difficulty Swallowing, Sinus Congestion Cardiovascular: Denies: Chest Pain, Palpitations Respiratory: Denies: Cough, Shortness of Breath Gastrointestinal: Denies: Diarrhea, Nausea, Vomiting Genitourinary: Denies: Dysuria, Hematuria Endocrine: Denies: Heat/ Cold Intolerance, Polydipsia, Polyuria Hematologic/ Lymphatic: Denies: Easy Bruising, Easy Bleeding - Physical Exam Vital Signs Temp Pulse Resp BP 97.9 F 101 H 22 H 169/92 H 04/21/18 11:24 04/21/18 11:24 04/21/18 11:24 04/21/18 11:24 General: Alert, Oriented x3, Cooperative, No apparent distress, Well developed, Well nourished, - - The patient is morbidly obese. HEENT: Atraumatic, PERRLA, EOMI, Normocephalic Oral: Moist Mucosa Neck: No JVD Lungs: Normal air movement Abdomen: Non-Distended Extremities: No clubbing, No cyanosis, No Calf Tenderness, - - Only slight swelling and edema is noted in the lower extremities bilaterally. All wounds and ulcerations are now completely healed and epithelialized. Circumference measurements are documented elsewhere. Skin: No rashes, No breakdown Wound Measurements and Assessment WC - Nurse 1 - General Ulcer Measurement Start: 04/14/18 10:18 Freq: Status: Active Protocol: Activity Type Activity Date Activity User E-Sign Co-Sign Detail Recorded Client Recorded Date Recorded By Document 04/21/18 11:24 DL [id number] 04/21/18 11:35 DL 04/21/18 11:24 Wound Center Nurse 1 [Ulcer Assessment] #2 L Lower Calf -Current Size (cm) - Length 0 -Current Size (cm) - Width 0 -Current Size (cm) - Depth 0 -Total Square Cm 0 -Photo Taken Yes -Exudate Amt None Present (0 %) -Wound Margin Flat & Intact -Granulation Amt Large (67-100%) -Granulation Quality [place] -Slough/Fibrin No -Necrosis Amt None Present (0 %) -Structure Exposed N/A -Texture (Mitzi-wound Skin Appearance) No Abnormality -Moisture (Mitzi-wound Skin Appearance No Abnormality ) -Color (Mitzi-wound Skin Appearance) Hemosiderin Staining -Tenderness on Palpation (Mitzi-wound No Skin Appearance) -Ulcer Cleansing Wound Cleanser -Foul Odor after Cleansing No #1 L [place] Cluster -Current Size (cm) - Length 0 -Current Size (cm) - Width 0 -Current Size (cm) - Depth 0 -Total Square Cm 0 -Photo Taken Yes -Exudate Amt None Present (0 %) -Wound Margin Flat & Intact -Granulation Amt Large (67-100%) -Granulation Quality [place] -Necrosis Amt None Present (0 %) -Structure Exposed N/A -Texture (Mitzi-wound Skin Appearance) No Abnormality -Moisture (Mitzi-wound Skin Appearance No Abnormality ) -Color (Mitzi-wound Skin Appearance) No Abnormality -Temperature (Mitzi-wound Skin No Abnormality Appearance) (Pt Warm) -Tenderness on Palpation (Mitzi-wound No Skin Appearance) -Ulcer Cleansing Wound Cleanser -Foul Odor after Cleansing No [Edema Assessment] -Right Calf (cm) 42.1 -Right Ankle (cm) 25.3 -Left Calf (cm) 43.2 -Left Ankle (cm) 26.5 WC - Nurse 2 - General Ulcer CM Notes Start: 04/14/18 10:18 Freq: Status: Active Protocol: Activity Type Activity Date Activity User E-Sign Co-Sign Detail Recorded Client Recorded Date Recorded By Document 04/21/18 11:43 RENE [id number] 04/21/18 11:45 RENE 04/21/18 11:43 Wound Center Nurse 2 [Procedure/Treatment] #2 L Lower Calf -Correct Patient No -Correct Side, Site, Position No -Correct Procedure No -Procedure Performed No -Post Debridement Size (cm) - Length 0 -Post Debridement Size (cm) - Width 0 -Post Debridement Size (cm) - Depth 0 -Total Square Cm 0 -Wound/Ulcer Outcome Healed- Epithelialized #1 L [place] Cluster -Correct Patient No -Correct Side, Site, Position No -Correct Procedure No -Procedure Performed No -Post Debridement Size (cm) - Length 0 -Post Debridement Size (cm) - Width 0 -Post Debridement Size (cm) - Depth 0 -Total Square Cm 0 -Wound/Ulcer Outcome Healed- Epithelialized [See Physician Procedure note for Specifics] Pain Scale: 0-10 Numeric [Pain] -Is Patient Pain Free? Yes Neurological: Cranial nerves II-XII grossly intact, Neuro grossly intact Psych/Mental Status: Normal Affect, Appropriate, Alert and oriented to time, place, person, mood and affect Debridement Note Post-Debridement Measurements/Treatment WC - Nurse 2 - General Ulcer CM Notes Start: 04/14/18 10:18 Freq: Status: Active Protocol: Activity Type Activity Date Activity User E-Sign Co-Sign Detail Recorded Client Recorded Date Recorded By Document 04/14/18 12:14 JS [id number] 04/14/18 12:23 Document 04/21/18 11:43 [id number] [id number] 04/21/18 11:45 JF 04/14/18 04/21/18 12:14 11:43 Wound Center Nurse 2 #2 L Lower Calf -Time 12:14 -Correct Patient Yes No -Correct Side, Site, Position Yes No -Correct Procedure Yes No -Procedure Performed Yes No -Type of Procedure Debridement -Clinical Debridement Subcutaneous -Post Debridement Size (cm) - Length 1.1 0 -Post Debridement Size (cm) - Width 0.7 0 -Post Debridement Size (cm) - Depth 0.1 0 -Total Square Cm 0.77 0 -Wound/Ulcer Outcome Not Healed Healed- Epithelialized -Ulcer Cleansing Rinsed/ Irrigated with Saline -Topical Lidocaine (%) 4 -Lidocaine (ml) 5 -Bleeding Controlled with NA -Treatment Response Procedure Tolerated Well #1 L [place] Cluster -Time 12:23 -Correct Patient Yes No -Correct Side, Site, Position Yes No -Correct Procedure Yes No -Procedure Performed Yes No -Type of Procedure Debridement -Clinical Debridement Subcutaneous -Post Debridement Size (cm) - Length 1.1 0 -Post Debridement Size (cm) - Width 1.0 0 -Post Debridement Size (cm) - Depth 0.1 0 -Total Square Cm 1.10 0 -Wound/Ulcer Outcome Not Healed Healed- Epithelialized -Ulcer Cleansing Rinsed/ Irrigated with Saline -Foul Odor after Cleansing No -Bioengineered Tissue No -Topical Lidocaine (%) 4 -Lidocaine (ml) 5 -Bleeding Controlled with NA -Treatment Response Procedure Tolerated Well Pain Scale: 0-10 Numeric Is Patient Pain Free? Yes Yes No debridement was completed today Assessment/Plan Active Problems Leg swelling (Chronic) Leg edema (Chronic) Lymphedema (Chronic) Ulcer of left lower leg (Chronic) Morbid obesity with BMI of 50.0-59.9, adult (Chronic) Diabetes mellitus (Chronic) Dependent edema (Chronic) Assessment: This is a 77-year-old female with multiple medical problems, including morbid obesity, diabetes mellitus, atrial fibrillation, chronic obstructive pulmonary disease, hypertension, renal insufficiency, etc. She presented with severe swelling and edema in her lower extremities. It appears to be related to chronic dependency, inactivity, morbid obesity, etc. In other words, the patient's daily habits appear to have contributed significantly to her lower extremity swelling. She has multiple pre-existing medical problems which have been documented elsewhere. A battery of diagnostic tests have been completed. The patient's noninvasive lower extremity arterial study appears normal, with triphasic waveforms at ankle level bilaterally, and normal ankle- brachial indices and digital-brachial indices. 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 Patient's laboratory studies have been reviewed, with results as follows: Sodium 145, potassium 4.7, chloride 107, BUN 15, creatinine 1.34, glucose 96, hemoglobin A1c 8.3, calcium 9.4, total bilirubin 0.60, AST 15, ALT 20, alkaline phosphatase 100, total protein 6.9, albumin 3.4, serum prealbumin 14.9, white blood count 7.0, hemoglobin 11.4, hematocrit 38.8, platelets 220,000. The patient's lower extremity wounds and ulcerations are now completely healed. Plan: The patient has been advised to elevate her lower extremities as much as possible. Elevation is to be to heart level, or higher. She is to refrain from prolonged idle sitting. Activity has been encouraged. Weight loss has been strongly encouraged. Compression is to be continued by means of SurePress wraps, which will be applied daily with assistance from the patient's family members. We are to place an order for CircAid Velcro compression garments bilaterally. The patient will follow-up in 1-2 weeks, once the CircAid compression garments have been received, to assure that the patient is doing well, utilizing the garments appropriately. Thereafter, discharge is anticipated. Patient has been advised to optimize her glycemic control and to assure adequate nutrition. Influenza vaccine was not administered today. The patient is not a smoker. Patient weighs 307 pounds. Patient stands 5 feet 3 inches tall. Her BMI is 54.4, which places her in an obese class III category. Weight loss has been recommended, and collaboration with her primary care physician in terms of weight loss options has been recommended.
[2018-05-12 11:11] VITALS: BP 123/72; PULSE 100; RESP 18; TEMP 36.4
--- NOTE | 2018-05-12 12:06 | HP.PCM_ITS ---
(1) Leg swelling Status: Chronic Current Visit: Yes Code(s): M79.89 - Other specified soft tissue disorders (2) Leg edema Status: Chronic Current Visit: Yes Code(s): R60.0 - Localized edema (3) Lymphedema Status: Chronic Current Visit: Yes Code(s): I89.0 - Lymphedema, not elsewhere classified (4) Ulcer of left lower leg Status: Chronic Current Visit: Yes Qualifiers: Non-pressure ulcer stage: with fat layer exposed Code(s): L97.929 - Non-pressure chronic ulcer of unspecified part of left lower leg with unspecified severity (5) Morbid obesity with BMI of 50.0-59.9, adult Status: Chronic Current Visit: Yes Code(s): E66.01 - Morbid (severe) obesity due to excess calories; Z68.43 - Body mass index (BMI) 50-59.9 , adult (6) Diabetes mellitus Status: Chronic Current Visit: Yes Qualifiers: Diabetes mellitus type: type 2 Code(s): E11.9 - Type 2 diabetes mellitus without complications (7) Anemia Status: Chronic Current Visit: No Code(s): D64.9 - Anemia, unspecified (8) COPD (chronic obstructive pulmonary disease) Status: Chronic Current Visit: No Code(s): J44.9 - Chronic obstructive pulmonary disease, unspecified (9) A-fib Status: Chronic Current Visit: No Qualifiers: Code(s): I48.91 - Unspecified atrial fibrillation (10) Hypertension Status: Chronic Current Visit: No Code(s): I10 - Essential (primary) hypertension (11) PAD (peripheral artery disease) Status: Chronic Current Visit: No Code(s): I73.9 - Peripheral vascular disease, unspecified (12) Osteoarthritis Status: Chronic Current Visit: No Code(s): M19.90 - Unspecified osteoarthritis, unspecified site (13) Hyperlipidemia Status: Chronic Current Visit: No Code(s): E78.5 - Hyperlipidemia, unspecified (14) Renal insufficiency Status: Chronic Current Visit: No Code(s): N28.9 - Disorder of kidney and ureter, unspecified (15) Dependent edema Status: Chronic Current Visit: Yes Code(s): R60.9 - Edema, unspecified History of Present Illness Date of Service: 05/12/18 Chief Complaint: Severe swelling, edema, and lymphedema of both lower extremities, associated with recent ulcerations of the left lower extremity. The patient states My skin is broke out. History of Wound: This is a 77-year-old morbidly obese, diabetic white female with a long-standing history of swelling, edema, and lymphedema in her lower extremities. She has developed chronic skin changes in both lower extremities. Within the last several weeks prior to presentation, she developed blisters on the left anterior tibial surface and on the left posterior calf, which have burst, and developed into open superficial ulcerations. The patient sleeps primarily in a recliner with her legs in a dependent position. She is morbidly obese . She suffers from chronic obstructive pulmonary disease, which limits her activity. As a result, she does not ambulate very liberally. She leads a rather sedentary lifestyle, typically sitting in an idle position for a good part of each day. The patient has had long-term swelling in both lower extremities, though denies a history of thrombophlebitis in the past. Upon initial development of the superficial ulcerations in the left lower extremity, the patient used [id number] antibiotic ointment. She was subsequently evaluated by a physician, and was prescribed oral antibiotic. She completed the initial prescription for antibiotic, and subsequently completed a second prescription. The initial antibiotic was unknown. The second antibiotic is suspected to have been doxycycline. Past Medical History Past Medical History: Chronic Problems Leg swelling (Chronic) Leg edema (Chronic) Lymphedema (Chronic) Ulcer of left lower leg (Chronic) Morbid obesity with BMI of 50.0-59.9, adult (Chronic) Diabetes mellitus (Chronic) Anemia (Chronic) COPD (chronic obstructive pulmonary disease) (Chronic) A-fib (Chronic) Hypertension (Chronic) PAD (peripheral artery disease) (Chronic) Osteoarthritis (Chronic) Hyperlipidemia (Chronic) Renal insufficiency (Chronic) Dependent edema (Chronic) Surgical History: - - The patient has undergone a complete hysterectomy in the past. She has also undergone ventral hernia repair. She is a Ab0. - Family History Paternal - - The patient's father at the age of 65 with a history of coronary artery disease. Patient's mother at the age of 87 with a history of chronic obstructive pulmonary disease. Tobacco Use: Non-smoker Review of Systems Constitutional: Denies: Chills, Fever, Weight Change Eyes: Denies: Pain, Vision Change HEENT: Denies: Difficulty Hearing, Difficulty Swallowing, Sinus Congestion Cardiovascular: Denies: Chest Pain, Palpitations Respiratory: Denies: Cough, Shortness of Breath Gastrointestinal: Denies: Diarrhea, Nausea, Vomiting Genitourinary: Denies: Dysuria, Hematuria Endocrine: Denies: Heat/ Cold Intolerance, Polydipsia, Polyuria Hematologic/ Lymphatic: Denies: Easy Bruising, Easy Bleeding - Physical Exam Vital Signs Temp Pulse Resp BP 97.5 F L 100 18 123/72 H 05/12/18 11:11 05/12/18 11:11 05/12/18 11:11 05/12/18 11:11 General: Alert, Oriented x3, Cooperative, No apparent distress, Well developed, Well nourished, - - The patient is morbidly obese. HEENT: Atraumatic, PERRLA, EOMI, Normocephalic Oral: Moist Mucosa Neck: No JVD Lungs: Normal air movement Abdomen: Non-Distended Extremities: No clubbing, No cyanosis, No Calf Tenderness, - - Only slight swelling and edema is noted in the lower extremities bilaterally. There is a very slight erythematous dermatitis, which is scaly in nature. There is no evidence of cellulitis or infection. There are no nelson open wounds or ulcerations. Circumference measurements are documented elsewhere. Skin: No breakdown Wound Measurements and Assessment WC - Nurse 1 - General Ulcer Measurement Start: 04/14/18 10:18 Freq: Status: Active Protocol: Activity Type Activity Date Activity User E-Sign Co-Sign Detail Recorded Client Recorded Date Recorded By Document 05/12/18 11:11 [id number] 05/12/18 11:14 05/12/18 11:11 Wound Center Nurse 1 [Edema Assessment] -Lower Limb Edema Present Yes -Right Calf (cm) 45.1 -Right Ankle (cm) 28.3 -Left Calf (cm) 47.2 -Left Ankle (cm) 28.9 Neurological: Cranial nerves II-XII grossly intact, Neuro grossly intact Psych/Mental Status: Normal Affect, Appropriate, Alert and oriented to time, place, person, mood and affect Debridement Note Post-Debridement Measurements/Treatment WC - Nurse 2 - General Ulcer CM Notes Start: 04/14/18 10:18 Freq: Status: Active Protocol: Activity Type Activity Date Activity User E-Sign Co-Sign Detail Recorded Client Recorded Date Recorded By Document 04/14/18 12:14 JS [id number] 04/14/18 12:23 Document 04/21/18 11:43 [id number] 04/21/18 11:45 04/14/18 04/21/18 12:14 11:43 Wound Center Nurse 2 #2 L Lower Calf -Time 12:14 -Correct Patient Yes No -Correct Side, Site, Position Yes No -Correct Procedure Yes No -Procedure Performed Yes No -Type of Procedure Debridement -Clinical Debridement Subcutaneous -Post Debridement Size (cm) - Length 1.1 0 -Post Debridement Size (cm) - Width 0.7 0 -Post Debridement Size (cm) - Depth 0.1 0 -Total Square Cm 0.77 0 -Wound/Ulcer Outcome Not Healed Healed- Epithelialized -Ulcer Cleansing Rinsed/ Irrigated with Saline -Topical Lidocaine (%) 4 -Lidocaine (ml) 5 -Bleeding Controlled with NA -Treatment Response Procedure Tolerated Well #1 L [place] Cluster -Time 12:23 -Correct Patient Yes No -Correct Side, Site, Position Yes No -Correct Procedure Yes No -Procedure Performed Yes No -Type of Procedure Debridement -Clinical Debridement Subcutaneous -Post Debridement Size (cm) - Length 1.1 0 -Post Debridement Size (cm) - Width 1.0 0 -Post Debridement Size (cm) - Depth 0.1 0 -Total Square Cm 1.10 0 -Wound/Ulcer Outcome Not Healed Healed- Epithelialized -Ulcer Cleansing Rinsed/ Irrigated with Saline -Foul Odor after Cleansing No -Bioengineered Tissue No -Topical Lidocaine (%) 4 -Lidocaine (ml) 5 -Bleeding Controlled with NA -Treatment Response Procedure Tolerated Well Pain Scale: 0-10 Numeric Is Patient Pain Free? Yes Yes No debridement was completed today Assessment/Plan Active Problems Leg swelling (Chronic) Leg edema (Chronic) Lymphedema (Chronic) Ulcer of left lower leg (Chronic) Morbid obesity with BMI of 50.0-59.9, adult (Chronic) Diabetes mellitus (Chronic) Dependent edema (Chronic) Assessment: This is a 77-year-old female with multiple medical problems, including morbid obesity, diabetes mellitus, atrial fibrillation, chronic obstructive pulmonary disease, hypertension, renal insufficiency, etc. She presented with severe swelling and edema in her lower extremities. It appears to be related to chronic dependency, inactivity, morbid obesity, etc. In other words, the patient's daily habits appear to have contributed significantly to her lower extremity swelling. She has multiple pre-existing medical problems which have been documented elsewhere. A battery of diagnostic tests have been completed. The patient's noninvasive lower extremity arterial study appears normal, with triphasic waveforms at ankle level bilaterally, and normal ankle- brachial indices and digital-brachial indices. 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 Patient's laboratory studies have been reviewed, with results as follows: Sodium 145, potassium 4.7, chloride 107, BUN 15, creatinine 1.34, glucose 96, hemoglobin A1c 8.3, calcium 9.4, total bilirubin 0.60, AST 15, ALT 20, alkaline phosphatase 100, total protein 6.9, albumin 3.4, serum prealbumin 14.9, white blood count 7.0, hemoglobin 11.4, hematocrit 38.8, platelets 220,000. The patient's lower extremity wounds and ulcerations are now completely healed. Plan: The patient has been advised to elevate her lower extremities as much as possible. Elevation is to be to heart level, or higher. She is to refrain from prolonged idle sitting. Activity has been encouraged. Weight loss has been strongly encouraged. The patient has obtained her CircAid Velcro compression garments, which she is wearing on a daily basis, and are donned with the assistance of her daughter. Patient has been advised to optimize her glycemic control and to assure adequate nutrition. The patient appears to be doing well at this time, and is to be discharged. She will follow-up henceforth on an as-needed basis. If she were to return, consideration may be given to the use of mechanical compression pumps, as the patient continues to have some difficulty in sleeping in a recumbent position due to her chronic respiratory problems. Influenza vaccine was not administered today. The patient is not a smoker. Patient weighs 307 pounds. Patient stands 5 feet 3 inches tall. Her BMI is 54.4, which places her in an obese class III category. Weight loss has been recommended, and collaboration with her primary care physician in terms of weight loss options has been recommended.
== END 2018-05-12 23:59 ==
LOC: WC 11:30
PROVIDERS: Family Provider Internal Medicine; PCP Internal Medicine; Visit Provider Surgery
DX: E11.622 Type 2 diabetes mellitus with other skin ulcer (principal); I89.0 Lymphedema, not elsewhere classified; R60.0 Localized edema; M79.89 Other specified soft tissue disorders; J44.9 Chronic obstructive pulmonary disease, unspecified; E66.01 Morbid (severe) obesity due to excess calories; Z68.43 Body mass index [BMI] 50.0-59.9, adult; Z71.3 Dietary counseling and surveillance; I48.2 Chronic atrial fibrillation; E11.51 Type 2 diabetes mellitus with diabetic peripheral angiopathy without gangrene; M19.90 Unspecified osteoarthritis, unspecified site; E78.5 Hyperlipidemia, unspecified; E11.22 Type 2 diabetes mellitus with diabetic chronic kidney disease; I12.9 Hypertensive chronic kidney disease with stage 1 through stage 4 chronic kidney disease, or unspecified chronic kidney disease; N18.9 Chronic kidney disease, unspecified; L97.222 Non-pressure chronic ulcer of left calf with fat layer exposed; L97.822 Non-pressure chronic ulcer of other part of left lower leg with fat layer exposed
CPT/HCPCS: 11042; 29580; 99211; 99212; 99213; G0463